=== PATIENT | female | born 1950 | race Caucasian/White ===

== ENCOUNTER 2018-11-04 14:47 | Inpatient (IN) ==
[2018-11-04] MEDS ORDERED: ONDANSETRON 4 MG/2 ML VIAL IV STA (15:05)
[2018-11-04] MEDS ORDERED: LEVOFLOXACIN INJ 750 MG in PREMIX 1 EACH IV STA (15:05)
[2018-11-04] MEDS ORDERED: PANTOPRAZOLE 40 MG VIAL IV STA (15:05)
[2018-11-04] MEDS ORDERED: CLINDAMYCIN INJ 900 MG in PREMIX 1 EACH IV STA (15:05)
[2018-11-04] MEDS ORDERED: SODIUM CHLORIDE 0.9% 1,000 ML IV STA (15:05)
[2018-11-04] MEDS ORDERED: ONDANSETRON 4 MG/2 ML VIAL IV PRN (16:34)
[2018-11-04 16:56] LABS: Hematocrit 32.4 VOL% (35.7-47.0); Hemoglobin 10.1 GM/DL (12.0-16.0); Immature Granulocytes % 0.3 %; Immature Granulocytes Absolute 0.01 #; Lymphocytes % 26.1 % (21.3-54.2); Mean Corpuscular HGB Conc 31.2 GM/DL (32-36); Mean Platelet Volume 9.8 FL (9.6-12.0); Monocytes % 3.6 % (1.7-12.7); Platelet Count 376 T/CUMM (130-400); Red Blood Count 3.64 MC/CUMM (3.8-5.5); Red Cell Distribution Width 14.2 % (9.3-17.3); White Blood Count 3.9 T/CUMM (4-12)
[2018-11-04 17:06] LABS: PT Patient Result 10.7 SECS; Partial Thromboplastin Time 22.2 SECS (0-40)
[2018-11-04 17:20] LABS: Band Neutrophils 7 % (0-10); Lymphocytes 25 % (20-55); Segmented Neutrophils 62 % (50-85); Total Cells Counted 100
[2018-11-04 17:21] LABS: Alanine Aminotransferase 9 U/L (13-56); Albumin 2.8 G/DL (3.4-5.0); Alkaline Phosphatase 83 U/L (45-117); Amylase 24 U/L (25-115); Aspartate Amino Transferase 19 U/L (0-37); Blood Urea Nitrogen 15 MG/DL (7-18); Calcium 8.7 MG/DL (8.5-10.1); Elliptocytes Few; Glucose 84 MG/DL (74-106); Hypochromasia Slight; Osmolality,Calculated 276.5 MOS/KG (273-304); Platelet Estimate Adequate; Schistocytes Few; Total Protein 5.6 G/DL (6.4-8.3); Troponin I < 0.015 NG/ML (0.00-0.045)
[2018-11-04] MEDS ORDERED: LIDOCAINE 1% 20 ML VIAL ONE (17:24)
[2018-11-04] MEDS ORDERED: LIDOCAINE 1%/EPI INJ 20 ML VIAL ONE (17:24)
[2018-11-04] MEDS ORDERED: LORazepam 2 MG/1 ML VIAL ONE (17:39)
[2018-11-04] MEDS ORDERED: ALBUMIN 5% 12.5 GM/250 ML VIAL IV ONE ×2 (18:11→20:12)
[2018-11-04] MEDS ORDERED: HEPARIN/NACL 0.9% 2 UNITS/ML 500 ML IV ONE (19:04)
[2018-11-04 19:37] LABS: ABG HCO3 19.5 MMOL/L (20-26); ABG Oxygen Saturation 99.5 % (95-100); ABG PCO2 37.3 MM HG (35-48); ABG PH 7.326 (7.35-7.45); ABG TCO2 18.3 MMOL/L (23-27); Glucose Heart Surgery 107 MG/DL (74-106); Hematocrit Heart Surgery 24.5 PERCENT (37-47); Hemoglobin Heart Surgery 7.8 G/DL (12.0-16.0); Potassium Heart/CVR 3.1 MMOL/L (3.5-5.1)
[2018-11-04] MEDS: LACTATED RINGERS 1,000 ML IV SCH (19:55)
[2018-11-04] MEDS ORDERED: KETAMINE 500 MG/10 ML VIAL ONE (20:09)
[2018-11-04] MEDS ORDERED: CALCIUM CHLORIDE 1,000 MG/10 ML VIAL IV ONE (20:11)
[2018-11-04] MEDS ORDERED: PROPOFOL 200 MG/20 ML VIAL IV ONE (20:11)
[2018-11-04] MEDS ORDERED: fentaNYL 100 MCG/2 ML VIAL ONE (20:12)
[2018-11-04] MEDS ORDERED: PHENYLEPHRINE 1 MG/10 ML SYRINGE IV ONE (20:13)
[2018-11-04] MEDS ORDERED: SODIUM CHLORIDE 0.9% 1,000 ML IV ONE (20:13)
[2018-11-04] MEDS ORDERED: ROCURONIUM 100 MG/10 ML VIAL IV ONE (20:13)
[2018-11-04] MEDS ORDERED: LACTATED RINGERS 3,000 ML IV ONE (20:13)
[2018-11-04] MEDS ORDERED: MIDAZOLAM 2 MG/2 ML VIAL ONE (20:14)
[2018-11-04 20:16] LABS: Apearance,Urine CLEAR (Clear); Bilirubin,Urine Negative (Negative); Blood, Urine Negative (Negative); Glucose,Urine (UA) Negative (Negative); Ketones,Urine Negative (Negative); Mucus,Urine Occasional /LPF (Occasional); Nitrite,Urine Negative (Negative); Protein,Urine Negative; Squamous Epithelial Cell,Urine Occasional /HPF (0-10); Urine Color Yellow (Yellow); Urine Specific Gravity 1.012 (1.001-1.035); Urine Urobilinogen < 2.0 EU/DL (0.2-1.0); WBC,Urine <1 /HPF (0-6)
[2018-11-04] MEDS ORDERED: DEXAMETHASONE 4 MG/1 ML VIAL ONE (20:16)
[2018-11-04] MEDS ORDERED: ONDANSETRON 4 MG/2 ML VIAL ONE (20:16)
[2018-11-04 20:47] LABS: Hematocrit 28.9 VOL% (35.7-47.0); Hemoglobin 8.9 GM/DL (12.0-16.0); Lymphocytes # 0.2 10*3/uL (1.4-4.0); Lymphocytes % 9.4 % (21.3-54.2); Mean Corpuscular HGB Conc 30.8 GM/DL (32-36); Mean Corpuscular Volume 90.3 FL (87-102); Mean Platelet Volume 9.6 FL (9.6-12.0); Monocytes % 6.6 % (1.7-12.7); Platelet Count 251 T/CUMM (130-400); White Blood Count 2.4 T/CUMM (4-12)
[2018-11-04 21:08] LABS: Calcium 8.5 MG/DL (8.5-10.1); Osmolality,Calculated 281.3 MOS/KG (273-304)
[2018-11-04 21:21] LABS: Band Neutrophils 21 % (0-10); Hypochromasia Slight; Lymphocytes 5 % (20-55); Segmented Neutrophils 67 % (50-85); Total Cells Counted 100
[2018-11-04 21:22] LABS: Elliptocytes Few; Platelet Estimate Adequate; Schistocytes Few
[2018-11-04] MEDS ORDERED: MAGNESIUM SULF RIDER 4 GM in PREMIX 1 EACH IV PRN (21:40)
[2018-11-04] MEDS: PROPOFOL 1,000 MG/100 ML BOTTLE IV SCH ×2 (21:49→23:55)
[2018-11-04] MEDS: MORPHINE 4 MG/1 ML VIAL IV PRN ×2 (22:00→23:56)
[2018-11-04] MEDS: LEVOFLOXACIN INJ 750 MG in PREMIX 1 EACH IV SCH (22:08)
[2018-11-04] MEDS: POTASSIUM CHLORIDE RIDER 10 MEQ in PREMIX 1 EACH IV PRN ×2 (22:09→23:06)
[2018-11-04 22:56] LABS: ABG Base Excess -5.6 MMOL/L (-2.5-2.5); ABG HCO3 19.8 MMOL/L (20-26); ABG Oxygen Saturation 98.9 % (95-100); ABG PCO2 39.9 MM HG (35-48); ABG PH 7.313 (7.35-7.45); ABG TCO2 18.8 MMOL/L (23-27)
[2018-11-04] MEDS: CLINDAMYCIN INJ 900 MG in PREMIX 1 EACH IV SCH (23:45)
[2018-11-04] MEDS ORDERED: SEVOFLURANE 1 UNIT/15 MINUTE INH ONE (23:52)
[2018-11-05] MEDS: LACTATED RINGERS 1,000 ML IV SCH ×5 (00:26→21:11)
[2018-11-05] MEDS: POTASSIUM CHLORIDE RIDER 10 MEQ in PREMIX 1 EACH IV PRN ×2 (01:04)
[2018-11-05] MEDS: MORPHINE 4 MG/1 ML VIAL IV PRN ×5 (02:09→20:04)
[2018-11-05 04:21] LABS: ABG Base Excess -4.2 MMOL/L (-2.5-2.5); ABG Oxygen Saturation 99.5 % (95-100); ABG PCO2 37.3 MM HG (35-48); ABG PH 7.356 (7.35-7.45); ABG TCO2 19.4 MMOL/L (23-27)
[2018-11-05 04:47] LABS: Hematocrit 26.6 VOL% (35.7-47.0); Hemoglobin 8.5 GM/DL (12.0-16.0); Red Blood Count 2.98 MC/CUMM (3.8-5.5)
[2018-11-05 04:48] LABS: Immature Granulocytes % 0.2 %; Immature Granulocytes Absolute 0.01 #; Lymphocytes # 0.3 10*3/uL (1.4-4.0); Mean Corpuscular Volume 89.3 FL (87-102); Mean Platelet Volume 10.3 FL (9.6-12.0); Monocytes % 4.7 % (1.7-12.7); Neutrophils % 88.1 % (38.7-73.9); Platelet Count 270 T/CUMM (130-400); Red Cell Distribution Width 14.1 % (9.3-17.3)
[2018-11-05 05:06] LABS: Albumin 2.5 G/DL (3.4-5.0); Bilirubin,Total 0.9 MG/DL (0.2-1.0); Calcium 8.2 MG/DL (8.5-10.1); Osmolality,Calculated 281.4 MOS/KG (273-304); Total Protein 4.7 G/DL (6.4-8.3)
[2018-11-05 05:14] LABS: Band Neutrophils 24 % (0-10); Hypochromasia 1+; Lymphocytes 6 % (20-55); Ovalocytes Slight; Platelet Estimate Adequate; Segmented Neutrophils 68 % (50-85); Total Cells Counted 100
[2018-11-05] MEDS: CLINDAMYCIN INJ 900 MG in PREMIX 1 EACH IV SCH ×2 (07:50→15:30)
[2018-11-05] MEDS: PROPOFOL 1,000 MG/100 ML BOTTLE IV SCH ×2 (13:00→20:38)
[2018-11-05] MEDS: LEVOFLOXACIN INJ 750 MG in PREMIX 1 EACH IV SCH (20:43)
[2018-11-06] MEDS: CLINDAMYCIN INJ 900 MG in PREMIX 1 EACH IV SCH ×3 (00:12→15:40)
[2018-11-06] MEDS: MORPHINE 4 MG/1 ML VIAL IV PRN ×7 (00:13→20:40)
[2018-11-06] MEDS: PROPOFOL 1,000 MG/100 ML BOTTLE IV SCH ×3 (00:13→22:53)
[2018-11-06] MEDS: LACTATED RINGERS 1,000 ML IV SCH ×5 (01:09→17:00)
[2018-11-06 04:39] LABS: ABG Base Excess -0.1 MMOL/L (-2.5-2.5); ABG HCO3 24.4 MMOL/L (20-26); ABG Oxygen Saturation 97.1 % (95-100); ABG PCO2 41.4 MM HG (35-48); ABG PH 7.387 (7.35-7.45); ABG PO2 87.9 MM HG (80-95); ABG TCO2 23.5 MMOL/L (23-27)
[2018-11-06 04:54] LABS: Basophils % 0.1 % (0.0-0.8); Hematocrit 21.3 VOL% (35.7-47.0); Hemoglobin 6.8 GM/DL (12.0-16.0); Lymphocytes # 0.6 10*3/uL (1.4-4.0); Lymphocytes % 6.4 % (21.3-54.2); Mean Corpuscular HGB Conc 31.9 GM/DL (32-36); Mean Corpuscular Volume 87.7 FL (87-102); Mean Platelet Volume 10.4 FL (9.6-12.0); Monocytes % 2.5 % (1.7-12.7); Platelet Count 226 T/CUMM (130-400); Red Blood Count 2.43 MC/CUMM (3.8-5.5); Red Cell Distribution Width 14.2 % (9.3-17.3)
[2018-11-06 05:15] LABS: Hypochromasia 1+; Ovalocytes Slight; Platelet Estimate Adequate
[2018-11-06 05:18] LABS: Osmolality,Calculated 276.5 MOS/KG (273-304)
[2018-11-06] MEDS: POTASSIUM CHLORIDE RIDER 10 MEQ in PREMIX 1 EACH IV PRN ×3 (06:15→08:55)
[2018-11-06] MEDS ORDERED: SODIUM CHLORIDE 0.9% 1,000 ML IV PRN (07:18)
[2018-11-06] MEDS ORDERED: LIDOCAINE 1%/EPI INJ 20 ML VIAL ONE (12:46)
[2018-11-06] MEDS ORDERED: BUPIVACAINE 0.25% /EPI 10 ML VIAL ONE (12:46)
[2018-11-06] MEDS ORDERED: MIDAZOLAM 2 MG/2 ML VIAL ONE (14:22)
[2018-11-06] MEDS ORDERED: SEVOFLURANE 1 UNIT/15 MINUTE INH ONE (14:22)
[2018-11-06] MEDS ORDERED: ROCURONIUM 100 MG/10 ML VIAL IV ONE (14:23)
[2018-11-06] MEDS ORDERED: PHENYLEPHRINE 1 MG/10 ML SYRINGE IV ONE (14:23)
[2018-11-06 19:11] LABS: Hematocrit 28.1 VOL% (35.7-47.0); Hemoglobin 9.2 GM/DL (12.0-16.0)
[2018-11-06] MEDS ORDERED: POTASSIUM CHLORIDE INJ 50 MEQ in SODIUM CHLORIDE 0.9% 500 ML IV ONE (20:00)
[2018-11-06] MEDS: LEVOFLOXACIN INJ 750 MG in PREMIX 1 EACH IV SCH (20:40)
[2018-11-07] MEDS: CLINDAMYCIN INJ 900 MG in PREMIX 1 EACH IV SCH ×3 (00:20→16:08)
[2018-11-07] MEDS: LACTATED RINGERS 1,000 ML IV SCH ×5 (02:27→22:50)
[2018-11-07] MEDS: PROPOFOL 1,000 MG/100 ML BOTTLE IV SCH ×3 (02:28→20:33)
[2018-11-07] MEDS: MORPHINE 4 MG/1 ML VIAL IV PRN ×6 (02:42→20:33)
[2018-11-07 04:04] LABS: ABG Base Excess 0.9 MMOL/L (-2.5-2.5); ABG HCO3 25.4 MMOL/L (20-26); ABG Oxygen Saturation 99.2 % (95-100); ABG PCO2 40.1 MM HG (35-48); ABG PO2 435.4 MM HG (80-95); ABG TCO2 26.7 MMOL/L (23-27)
[2018-11-07 04:11] LABS: Basophils % 0.2 % (0.0-0.8); Eosinophils % 0.3 % (0.00-10.9); Hematocrit 27.9 VOL% (35.7-47.0); Hemoglobin 9.1 GM/DL (12.0-16.0); Immature Granulocytes % 0.5 %; Immature Granulocytes Absolute 0.05 #; Lymphocytes # 0.6 10*3/uL (1.4-4.0); Lymphocytes % 5.8 % (21.3-54.2); Mean Corpuscular HGB Conc 32.6 GM/DL (32-36); Mean Corpuscular Volume 86.6 FL (87-102); Mean Platelet Volume 9.8 FL (9.6-12.0); Neutrophils % 91.2 % (38.7-73.9); Platelet Count 184 T/CUMM (130-400); Red Blood Count 3.22 MC/CUMM (3.8-5.5); White Blood Count 9.6 T/CUMM (4-12)
[2018-11-07 05:52] LABS: Anisocytosis Slight; Lymphocytes 6 % (20-55); Platelet Estimate Adequate; Segmented Neutrophils 91 % (50-85); Total Cells Counted 100
[2018-11-07 07:54] LABS: ABG Base Excess 0.6 MMOL/L (-2.5-2.5); ABG Oxygen Saturation 97.9 % (95-100); ABG PCO2 44.4 MM HG (35-48); ABG PH 7.376 (7.35-7.45); ABG TCO2 23.7 MMOL/L (23-27)
[2018-11-07 08:10] LABS: Calcium 8.1 MG/DL (8.5-10.1); Osmolality,Calculated 269.8 MOS/KG (273-304)
[2018-11-07] MEDS ORDERED: GLUCAGON 1 MG VIAL IM PRN (08:33)
[2018-11-07] MEDS: MULTIVITAMIN LIQUID (CENTRUM) 60 ML BOTTLE PER TUBE SCH (09:05)
[2018-11-07] MEDS: MAGNESIUM SULF RIDER 2 GM in PREMIX 1 EACH IV PRN (10:39)
[2018-11-07] MEDS: POTASSIUM CHLORIDE RIDER 10 MEQ in PREMIX 1 EACH IV PRN ×5 (10:39→18:17)
[2018-11-07] MEDS ORDERED: ROCURONIUM 100 MG/10 ML VIAL IV ONE (12:28)
[2018-11-07] MEDS ORDERED: MIDAZOLAM 10 MG/2 ML VIAL ONE (12:28)
[2018-11-07] MEDS ORDERED: PHENYLEPHRINE 1 MG/10 ML SYRINGE IV ONE (12:28)
[2018-11-07] MEDS: DEXTROSE 50% 25 GM/50 ML SYRINGE IV PRN (12:45)
[2018-11-07] MEDS: INSULIN REGULAR 100 UNIT/ML SUBCUT SCH ×2 (12:51→18:08)
[2018-11-07] MEDS: LEVOFLOXACIN INJ 750 MG in PREMIX 1 EACH IV SCH (20:33)
[2018-11-08] MEDS: INSULIN REGULAR 100 UNIT/ML SUBCUT SCH ×4 (00:36→18:20)
[2018-11-08] MEDS: LACTATED RINGERS 1,000 ML IV SCH ×2 (01:01→07:11)
[2018-11-08] MEDS: CLINDAMYCIN INJ 900 MG in PREMIX 1 EACH IV SCH ×3 (01:01→15:10)
[2018-11-08] MEDS: MORPHINE 4 MG/1 ML VIAL IV PRN ×3 (01:02→07:22)
[2018-11-08 03:56] LABS: ABG Base Excess 3.2 MMOL/L (-2.5-2.5); ABG HCO3 27.3 MMOL/L (20-26); ABG Oxygen Saturation 98.6 % (95-100); ABG PCO2 44.2 MM HG (35-48); ABG PH 7.412 (7.35-7.45); ABG TCO2 25.7 MMOL/L (23-27)
[2018-11-08 03:59] LABS: Basophils % 0.3 % (0.0-0.8); Eosinophils % 0.4 % (0.00-10.9); Hemoglobin 9.3 GM/DL (12.0-16.0); Immature Granulocytes % 0.6 %; Immature Granulocytes Absolute 0.06 #; Lymphocytes # 0.5 10*3/uL (1.4-4.0); Lymphocytes % 4.8 % (21.3-54.2); Mean Corpuscular HGB Conc 32.1 GM/DL (32-36); Mean Corpuscular Volume 87.1 FL (87-102); Mean Platelet Volume 9.7 FL (9.6-12.0); Monocytes % 3.3 % (1.7-12.7); Neutrophils % 90.6 % (38.7-73.9); Platelet Count 217 T/CUMM (130-400); Red Blood Count 3.33 MC/CUMM (3.8-5.5); Red Cell Distribution Width 13.9 % (9.3-17.3); White Blood Count 10.1 T/CUMM (4-12)
[2018-11-08 04:13] LABS: Calcium 7.5 MG/DL (8.5-10.1); Osmolality,Calculated 267.1 MOS/KG (273-304)
[2018-11-08] MEDS ORDERED: POTASSIUM CHLORIDE INJ 40 MEQ in SODIUM CHLORIDE 0.9% 380 ML IV PRN (05:00)
[2018-11-08] MEDS: MAGNESIUM SULF RIDER 2 GM in PREMIX 1 EACH IV PRN (05:06)
[2018-11-08 05:16] LABS: Anisocytosis 1+; Hypochromasia Slight; Lymphocytes 5 % (20-55); Platelet Estimate Adequate; Segmented Neutrophils 93 % (50-85); Smudge Cells Few; Total Cells Counted 100
[2018-11-08 05:17] LABS: Acanthocytes Few; Burr Cells Few; Ovalocytes Few
[2018-11-08] MEDS: ENOXAPARIN 40 MG/0.4 ML SYRINGE SUBCUT SCH (07:22)
[2018-11-08] MEDS: HYDROmorphone 2 MG/1 ML VIAL IV PRN ×5 (08:13→23:50)
[2018-11-08] MEDS: MULTIVITAMIN LIQUID (CENTRUM) 60 ML BOTTLE PER TUBE SCH (09:15)
[2018-11-08] MEDS: MEROPENEM 500 MG in SODIUM CHLORIDE 0.9% 100 ML IV SCH ×2 (10:56→16:30)
[2018-11-08] MEDS: DEXT 5% NACL 0.45% KCL 20 MEQ 20 MEQ/1,000 ML BAG IV SCH (11:50)
[2018-11-08] MEDS ORDERED: ZINC OXIDE PASTE 113 GM TUBE TOP PRN (12:56)
[2018-11-08] MEDS ORDERED: PANTOPRAZOLE 40 MG TABLET PO SCH ×2 (13:47→21:00)
[2018-11-08] MEDS: PROPOFOL 1,000 MG/100 ML BOTTLE IV SCH ×2 (14:47→23:11)
[2018-11-08] MEDS: CARBIDOPA/LEVODOPA 25-100 MG TABLET PO SCH ×2 (16:30→21:15)
[2018-11-08] MEDS ORDERED: CYCLOBENZAPRINE 10 MG TABLET PO SCH (21:00)
[2018-11-08] MEDS ORDERED: ZIPRASIDONE 20 MG CAPSULE PO SCH (21:00)
[2018-11-08] MEDS: DONEPEZIL 5 MG TABLET PO SCH (21:15)
[2018-11-08] MEDS: CYCLOBENZAPRINE 10 MG TABLET PO SCH (21:15)
[2018-11-08] MEDS: LEVOFLOXACIN INJ 750 MG in PREMIX 1 EACH IV SCH (21:15)
[2018-11-08] MEDS: ZIPRASIDONE 20 MG CAPSULE PO SCH (21:15)
[2018-11-09] MEDS: CLINDAMYCIN INJ 900 MG in PREMIX 1 EACH IV SCH ×2 (00:45→08:50)
[2018-11-09] MEDS: INSULIN REGULAR 100 UNIT/ML SUBCUT SCH ×4 (01:10→18:00)
[2018-11-09] MEDS: MEROPENEM 500 MG in SODIUM CHLORIDE 0.9% 100 ML IV SCH ×3 (02:32→17:00)
[2018-11-09 03:41] LABS: Basophils % 0.2 % (0.0-0.8); Eosinophils # 0.1 10*3/uL (0.0-0.87); Hematocrit 29.8 VOL% (35.7-47.0); Hemoglobin 9.7 GM/DL (12.0-16.0); Immature Granulocytes % 1.1 %; Immature Granulocytes Absolute 0.14 #; Lymphocytes # 0.6 10*3/uL (1.4-4.0); Lymphocytes % 4.8 % (21.3-54.2); Mean Corpuscular HGB Conc 32.6 GM/DL (32-36); Mean Corpuscular Volume 86.4 FL (87-102); Mean Platelet Volume 10.2 FL (9.6-12.0); Monocytes % 5.9 % (1.7-12.7); Platelet Count 224 T/CUMM (130-400); Red Blood Count 3.45 MC/CUMM (3.8-5.5); Red Cell Distribution Width 13.9 % (9.3-17.3); White Blood Count 12.6 T/CUMM (4-12)
[2018-11-09 03:54] LABS: ABG Base Excess 3.2 MMOL/L (-2.5-2.5); ABG HCO3 27.3 MMOL/L (20-26); ABG Oxygen Saturation 99.2 % (95-100); ABG PCO2 44.7 MM HG (35-48); ABG PH 7.412 (7.35-7.45); ABG TCO2 24.5 MMOL/L (23-27)
[2018-11-09 04:13] LABS: Eosinophils 1 % (0-10); Lymphocytes 7 % (20-55); Segmented Neutrophils 89 % (50-85); Total Cells Counted 100
[2018-11-09 04:14] LABS: Anisocytosis Slight; Burr Cells Few; Microcytosis Slight; Ovalocytes Slight
[2018-11-09 04:15] LABS: Platelet Estimate Normal
[2018-11-09 04:23] LABS: Calcium 7.2 MG/DL (8.5-10.1); Osmolality,Calculated 271.1 MOS/KG (273-304); Prealbumin 5.3 MG/DL (20-40)
[2018-11-09] MEDS ORDERED: POTASSIUM CHLORIDE INJ 40 MEQ in SODIUM CHLORIDE 0.9% 380 ML IV PRN (05:00)
[2018-11-09] MEDS: MAGNESIUM SULF RIDER 2 GM in PREMIX 1 EACH IV PRN (05:21)
[2018-11-09] MEDS: LEVOTHYROXINE 100 MCG TABLET PO SCH (06:06)
[2018-11-09] MEDS: DEXT 5% NACL 0.45% KCL 20 MEQ 20 MEQ/1,000 ML BAG IV SCH (07:55)
[2018-11-09] MEDS ORDERED: FUROSEMIDE 20 MG/2 ML VIAL IV ONE (09:00)
[2018-11-09] MEDS ORDERED: CITALOPRAM 40 MG TABLET PO SCH (09:00)
[2018-11-09] MEDS: ENOXAPARIN 40 MG/0.4 ML SYRINGE SUBCUT SCH (09:15)
[2018-11-09] MEDS: CYCLOBENZAPRINE 10 MG TABLET PO SCH ×2 (09:20→21:18)
[2018-11-09] MEDS: ZIPRASIDONE 20 MG CAPSULE PO SCH ×2 (09:20→21:18)
[2018-11-09] MEDS: POTASSIUM CHLORIDE 20 MEQ TABLET PO SCH (09:20)
[2018-11-09] MEDS: MULTIVITAMIN LIQUID (CENTRUM) 60 ML BOTTLE PER TUBE SCH (09:20)
[2018-11-09] MEDS: CARBIDOPA/LEVODOPA 25-100 MG TABLET PO SCH ×4 (09:20→21:18)
[2018-11-09] MEDS: LANSOPRAZOLE ODT 30 MG TABLET PO SCH ×2 (09:20→21:18)
[2018-11-09] MEDS: CLINDAMYCIN INJ 600 MG in PREMIX 1 EACH IV SCH ×2 (09:30→18:15)
[2018-11-09] MEDS: LEVOFLOXACIN 750 MG TABLET PO SCH (12:50)
[2018-11-09] MEDS: CITALOPRAM 40 MG TABLET PO SCH (12:50)
[2018-11-09] MEDS: PROPOFOL 1,000 MG/100 ML BOTTLE IV SCH ×3 (13:10→21:17)
[2018-11-09] MEDS ORDERED: metroNIDAZOLE 500 MG TABLET PO SCH (15:00)
[2018-11-09] MEDS: HYDROmorphone 2 MG/1 ML VIAL IV PRN (15:30)
[2018-11-09] MEDS: POTASSIUM CHLORIDE RIDER 10 MEQ in PREMIX 1 EACH IV PRN ×3 (16:35→18:45)
[2018-11-09] MEDS: DONEPEZIL 5 MG TABLET PO SCH (21:18)
[2018-11-10] MEDS: INSULIN REGULAR 100 UNIT/ML SUBCUT SCH ×5 (00:49→23:35)
[2018-11-10] MEDS: CLINDAMYCIN INJ 600 MG in PREMIX 1 EACH IV SCH ×3 (00:50→16:40)
[2018-11-10] MEDS: MEROPENEM 500 MG in SODIUM CHLORIDE 0.9% 100 ML IV SCH ×3 (01:15→16:40)
[2018-11-10] MEDS: PROPOFOL 1,000 MG/100 ML BOTTLE IV SCH ×4 (04:30→21:40)
[2018-11-10 04:43] LABS: ABG Base Excess 3.4 MMOL/L (-2.5-2.5); ABG HCO3 27.5 MMOL/L (20-26); ABG Oxygen Saturation 99.4 % (95-100); ABG PCO2 42.1 MM HG (35-48); ABG PH 7.431 (7.35-7.45); ABG TCO2 25.2 MMOL/L (23-27)
[2018-11-10 04:47] LABS: Basophils % 0.2 % (0.0-0.8); Eosinophils # 0.2 10*3/uL (0.0-0.87); Eosinophils % 1.4 % (0.00-10.9); Hematocrit 31.5 VOL% (35.7-47.0); Hemoglobin 10.6 GM/DL (12.0-16.0); Immature Granulocytes % 2.1 %; Immature Granulocytes Absolute 0.24 #; Lymphocytes % 8.4 % (21.3-54.2); Mean Corpuscular HGB Conc 33.7 GM/DL (32-36); Mean Corpuscular Volume 85.1 FL (87-102); Mean Platelet Volume 9.9 FL (9.6-12.0); Monocytes % 8.5 % (1.7-12.7); Neutrophils % 79.4 % (38.7-73.9); Platelet Count 252 T/CUMM (130-400); Red Cell Distribution Width 13.8 % (9.3-17.3); White Blood Count 11.4 T/CUMM (4-12)
[2018-11-10 05:05] LABS: Calcium 7.4 MG/DL (8.5-10.1); Osmolality,Calculated 274.8 MOS/KG (273-304)
[2018-11-10] MEDS: ENOXAPARIN 40 MG/0.4 ML SYRINGE SUBCUT SCH (06:25)
[2018-11-10] MEDS: LEVOTHYROXINE 100 MCG TABLET PO SCH (06:25)
[2018-11-10] MEDS: POTASSIUM CHLORIDE 20 MEQ TABLET PO SCH (08:55)
[2018-11-10] MEDS: MULTIVITAMIN LIQUID (CENTRUM) 60 ML BOTTLE PER TUBE SCH (08:55)
[2018-11-10] MEDS: LEVOFLOXACIN 750 MG TABLET PO SCH (08:55)
[2018-11-10] MEDS: ZIPRASIDONE 20 MG CAPSULE PO SCH ×2 (08:55→21:40)
[2018-11-10] MEDS: LANSOPRAZOLE ODT 30 MG TABLET PO SCH ×2 (08:55→21:18)
[2018-11-10] MEDS: CITALOPRAM 40 MG TABLET PO SCH (08:55)
[2018-11-10] MEDS: CARBIDOPA/LEVODOPA 25-100 MG TABLET PO SCH ×4 (08:55→21:18)
[2018-11-10] MEDS: CYCLOBENZAPRINE 10 MG TABLET PO SCH ×2 (08:55→21:18)
[2018-11-10] MEDS: DONEPEZIL 5 MG TABLET PO SCH (21:18)
[2018-11-10] MEDS: HYDROmorphone 2 MG/1 ML VIAL IV PRN (23:35)
[2018-11-11] MEDS: PROPOFOL 1,000 MG/100 ML BOTTLE IV SCH (00:10)
[2018-11-11] MEDS: CLINDAMYCIN INJ 600 MG in PREMIX 1 EACH IV SCH ×2 (01:29→09:40)
[2018-11-11] MEDS ORDERED: HEPARIN/NACL 0.9% 2 UNITS/ML 500 ML IV ONE (02:00)
[2018-11-11] MEDS: MEROPENEM 500 MG in SODIUM CHLORIDE 0.9% 100 ML IV SCH ×3 (02:09→16:30)
[2018-11-11 05:00] LABS: ABG Base Excess 2.2 MMOL/L (-2.5-2.5); ABG HCO3 26.4 MMOL/L (20-26); ABG Oxygen Saturation 99.1 % (95-100); ABG PCO2 37.7 MM HG (35-48); ABG PH 7.449 (7.35-7.45); ABG TCO2 23.4 MMOL/L (23-27); Allen Test Positive; Pt O2 Delivery Device Ventilator
[2018-11-11 05:35] LABS: Basophils % 0.3 % (0.0-0.8); Eosinophils # 0.1 10*3/uL (0.0-0.87); Eosinophils % 1.3 % (0.00-10.9); Hematocrit 33.7 VOL% (35.7-47.0); Hemoglobin 10.9 GM/DL (12.0-16.0); Immature Granulocytes % 3.7 %; Immature Granulocytes Absolute 0.32 #; Lymphocytes # 1.2 10*3/uL (1.4-4.0); Lymphocytes % 13.9 % (21.3-54.2); Mean Corpuscular HGB Conc 32.3 GM/DL (32-36); Mean Corpuscular Volume 87.5 FL (87-102); Mean Platelet Volume 9.8 FL (9.6-12.0); Monocytes % 10.9 % (1.7-12.7); Neutrophils % 69.9 % (38.7-73.9); Platelet Count 302 T/CUMM (130-400); Red Blood Count 3.85 MC/CUMM (3.8-5.5); Red Cell Distribution Width 14.1 % (9.3-17.3); White Blood Count 8.6 T/CUMM (4-12)
[2018-11-11 05:50] LABS: Calcium 7.9 MG/DL (8.5-10.1); Osmolality,Calculated 277.7 MOS/KG (273-304)
[2018-11-11] MEDS: ENOXAPARIN 40 MG/0.4 ML SYRINGE SUBCUT SCH (06:12)
[2018-11-11] MEDS: LEVOTHYROXINE 100 MCG TABLET PO SCH (06:12)
[2018-11-11] MEDS: INSULIN REGULAR 100 UNIT/ML SUBCUT SCH ×3 (06:12→18:36)
[2018-11-11] MEDS: HYDROmorphone 2 MG/1 ML VIAL IV PRN ×5 (07:28→20:36)
[2018-11-11] MEDS: LEVOFLOXACIN 750 MG TABLET PO SCH (08:57)
[2018-11-11] MEDS: ZIPRASIDONE 20 MG CAPSULE PO SCH ×2 (08:57→21:18)
[2018-11-11] MEDS: MULTIVITAMIN LIQUID (CENTRUM) 60 ML BOTTLE PER TUBE SCH (08:57)
[2018-11-11] MEDS: CITALOPRAM 40 MG TABLET PO SCH (08:57)
[2018-11-11] MEDS: LANSOPRAZOLE ODT 30 MG TABLET PO SCH ×2 (08:57→21:18)
[2018-11-11] MEDS: CYCLOBENZAPRINE 10 MG TABLET PO SCH ×2 (08:57→21:18)
[2018-11-11] MEDS: POTASSIUM CHLORIDE 20 MEQ TABLET PO SCH (08:57)
[2018-11-11] MEDS: CARBIDOPA/LEVODOPA 25-100 MG TABLET PO SCH ×4 (08:57→21:19)
[2018-11-11] MEDS: VANCOMYCIN INJ 1,000 MG in SODIUM CHLORIDE 0.9% 250 ML IV SCH ×2 (10:28→22:41)
[2018-11-11] MEDS: LACTATED RINGERS 1,000 ML IV SCH ×2 (14:20→22:39)
[2018-11-11] MEDS ORDERED: LORazepam 2 MG/1 ML VIAL ONE (17:49)
[2018-11-11] MEDS: LORazepam 2 MG/1 ML VIAL IV PRN (17:52)
[2018-11-11] MEDS: DEXTROSE 50% 25 GM/50 ML SYRINGE IV PRN (18:32)
[2018-11-11] MEDS: DONEPEZIL 5 MG TABLET PO SCH (21:18)
[2018-11-12] MEDS: DEXTROSE 50% 25 GM/50 ML SYRINGE IV PRN (00:01)
[2018-11-12] MEDS: INSULIN REGULAR 100 UNIT/ML SUBCUT SCH ×5 (00:21→23:59)
[2018-11-12] MEDS: MEROPENEM 500 MG in SODIUM CHLORIDE 0.9% 100 ML IV SCH ×3 (01:01→16:30)
[2018-11-12] MEDS: LORazepam 2 MG/1 ML VIAL IV PRN ×2 (01:01→08:30)
[2018-11-12 04:56] LABS: Prealbumin 10.4 MG/DL (20-40)
[2018-11-12] MEDS: ENOXAPARIN 40 MG/0.4 ML SYRINGE SUBCUT SCH (06:23)
[2018-11-12] MEDS: LEVOTHYROXINE 100 MCG TABLET PO SCH (06:23)
[2018-11-12] MEDS: LACTATED RINGERS 1,000 ML IV SCH ×4 (06:49→23:21)
[2018-11-12] MEDS: HYDROmorphone 2 MG/1 ML VIAL IV PRN ×5 (07:20→20:50)
[2018-11-12] MEDS: LEVALBUTEROL 1.25 MG/3 ML NEB RESP TX SCH ×3 (07:30→23:34)
[2018-11-12 07:32] LABS: Basophils # 0.1 10*3/uL (0.0-0.2); Basophils % 0.4 % (0.0-0.8); Eosinophils # 0.2 10*3/uL (0.0-0.87); Eosinophils % 1.7 % (0.00-10.9); Hematocrit 32.7 VOL% (35.7-47.0); Hemoglobin 10.2 GM/DL (12.0-16.0); Immature Granulocytes % 2.6 %; Lymphocytes # 1.5 10*3/uL (1.4-4.0); Mean Corpuscular HGB Conc 31.2 GM/DL (32-36); Mean Corpuscular Volume 89.3 FL (87-102); Mean Platelet Volume 9.8 FL (9.6-12.0); Monocytes % 10.1 % (1.7-12.7); Neutrophils % 72.2 % (38.7-73.9); Platelet Count 334 T/CUMM (130-400); Red Blood Count 3.66 MC/CUMM (3.8-5.5); Red Cell Distribution Width 13.9 % (9.3-17.3); White Blood Count 11.4 T/CUMM (4-12)
[2018-11-12 07:58] LABS: Albumin 1.6 G/DL (3.4-5.0); Bilirubin,Total 0.7 MG/DL (0.2-1.0); Osmolality,Calculated 277.4 MOS/KG (273-304); Total Protein 4.4 G/DL (6.4-8.3)
[2018-11-12] MEDS: MENTHOL/ZINC OXIDE OINT 71 GM JAR TOP SCH (09:38)
[2018-11-12] MEDS: MULTIVITAMIN LIQUID (CENTRUM) 60 ML BOTTLE PER TUBE SCH (09:38)
[2018-11-12] MEDS: CITALOPRAM 40 MG TABLET PO SCH (09:39)
[2018-11-12] MEDS: LEVOFLOXACIN 750 MG TABLET PO SCH (09:39)
[2018-11-12] MEDS: POTASSIUM CHLORIDE 20 MEQ TABLET PO SCH (09:39)
[2018-11-12] MEDS: CYCLOBENZAPRINE 10 MG TABLET PO SCH ×2 (09:39→21:12)
[2018-11-12] MEDS: ZIPRASIDONE 20 MG CAPSULE PO SCH ×2 (09:39→21:12)
[2018-11-12] MEDS: CARBIDOPA/LEVODOPA 25-100 MG TABLET PO SCH ×4 (09:39→21:14)
[2018-11-12] MEDS: LANSOPRAZOLE ODT 30 MG TABLET PO SCH ×2 (09:40→21:13)
[2018-11-12] MEDS: VANCOMYCIN INJ 1,000 MG in SODIUM CHLORIDE 0.9% 250 ML IV SCH ×2 (10:24→22:00)
[2018-11-12] MEDS: LORazepam 0.5 MG TABLET PO PRN ×2 (16:14→22:42)
[2018-11-12] MEDS: DONEPEZIL 5 MG TABLET PO SCH (21:12)
[2018-11-12] MEDS: VALBENAZINE 80 MG PO SCH (21:13)
[2018-11-13] MEDS: MEROPENEM 500 MG in SODIUM CHLORIDE 0.9% 100 ML IV SCH ×3 (00:56→17:22)
[2018-11-13] MEDS: HYDROmorphone 2 MG/1 ML VIAL IV PRN ×6 (01:02→22:24)
[2018-11-13 05:02] LABS: Basophils % 0.2 % (0.0-0.8); Eosinophils # 0.2 10*3/uL (0.0-0.87); Eosinophils % 1.6 % (0.00-10.9); Hematocrit 28.2 VOL% (35.7-47.0); Immature Granulocytes % 1.4 %; Lymphocytes # 1.9 10*3/uL (1.4-4.0); Lymphocytes % 13.1 % (21.3-54.2); Mean Corpuscular HGB Conc 31.9 GM/DL (32-36); Mean Corpuscular Volume 88.7 FL (87-102); Mean Platelet Volume 9.6 FL (9.6-12.0); Monocytes % 10.8 % (1.7-12.7); Neutrophils % 72.9 % (38.7-73.9); Platelet Count 321 T/CUMM (130-400); Red Blood Count 3.18 MC/CUMM (3.8-5.5); Red Cell Distribution Width 13.6 % (9.3-17.3); White Blood Count 14.7 T/CUMM (4-12)
[2018-11-13 05:19] LABS: Calcium 7.7 MG/DL (8.5-10.1); Osmolality,Calculated 275.5 MOS/KG (273-304)
[2018-11-13] MEDS: INSULIN REGULAR 100 UNIT/ML SUBCUT SCH ×3 (05:39→17:57)
[2018-11-13] MEDS: LEVOTHYROXINE 100 MCG TABLET PO SCH (06:11)
[2018-11-13] MEDS: ENOXAPARIN 40 MG/0.4 ML SYRINGE SUBCUT SCH (06:11)
[2018-11-13] MEDS: LACTATED RINGERS 1,000 ML IV SCH ×2 (07:30→16:48)
[2018-11-13] MEDS: LEVALBUTEROL 1.25 MG/3 ML NEB RESP TX SCH ×3 (07:41→22:40)
[2018-11-13] MEDS: CYCLOBENZAPRINE 10 MG TABLET PO SCH ×2 (09:16→21:48)
[2018-11-13] MEDS: ZIPRASIDONE 20 MG CAPSULE PO SCH ×2 (09:16→21:48)
[2018-11-13] MEDS: LEVOFLOXACIN 750 MG TABLET PO SCH (09:16)
[2018-11-13] MEDS: CITALOPRAM 40 MG TABLET PO SCH (09:16)
[2018-11-13] MEDS: CARBIDOPA/LEVODOPA 25-100 MG TABLET PO SCH ×4 (09:16→21:48)
[2018-11-13] MEDS: POTASSIUM CHLORIDE 20 MEQ TABLET PO SCH (09:17)
[2018-11-13] MEDS: LANSOPRAZOLE ODT 30 MG TABLET PO SCH ×2 (09:17→21:48)
[2018-11-13] MEDS: VALBENAZINE 80 MG PO SCH (09:17)
[2018-11-13] MEDS: MENTHOL/ZINC OXIDE OINT 71 GM JAR TOP SCH (10:55)
[2018-11-13] MEDS: VANCOMYCIN INJ 1,000 MG in SODIUM CHLORIDE 0.9% 250 ML IV SCH ×2 (11:05→22:02)
[2018-11-13] MEDS: MULTIVITAMIN LIQUID (CENTRUM) 60 ML BOTTLE PER TUBE SCH (12:48)
[2018-11-13] MEDS: LORazepam 2 MG/1 ML VIAL IV PRN (17:58)
[2018-11-13] MEDS: DONEPEZIL 5 MG TABLET PO SCH (21:48)
[2018-11-14] MEDS: LACTATED RINGERS 1,000 ML IV SCH ×3 (00:12→21:53)
[2018-11-14] MEDS: INSULIN REGULAR 100 UNIT/ML SUBCUT SCH ×4 (00:45→17:44)
[2018-11-14] MEDS: LORazepam 2 MG/1 ML VIAL IV PRN ×2 (02:55→10:01)
[2018-11-14] MEDS: MEROPENEM 500 MG in SODIUM CHLORIDE 0.9% 100 ML IV SCH ×3 (03:09→17:11)
[2018-11-14 03:52] LABS: Basophils % 0.2 % (0.0-0.8); Eosinophils # 0.2 10*3/uL (0.0-0.87); Eosinophils % 1.6 % (0.00-10.9); Hematocrit 27.1 VOL% (35.7-47.0); Hemoglobin 8.5 GM/DL (12.0-16.0); Immature Granulocytes % 1.4 %; Immature Granulocytes Absolute 0.17 #; Lymphocytes # 1.8 10*3/uL (1.4-4.0); Lymphocytes % 14.2 % (21.3-54.2); Mean Corpuscular HGB Conc 31.4 GM/DL (32-36); Mean Corpuscular Volume 88.9 FL (87-102); Mean Platelet Volume 9.4 FL (9.6-12.0); Monocytes % 10.2 % (1.7-12.7); Neutrophils % 72.4 % (38.7-73.9); Platelet Count 334 T/CUMM (130-400); Red Blood Count 3.05 MC/CUMM (3.8-5.5); Red Cell Distribution Width 13.6 % (9.3-17.3); White Blood Count 12.5 T/CUMM (4-12)
[2018-11-14 04:16] LABS: Calcium 7.7 MG/DL (8.5-10.1); Osmolality,Calculated 273.7 MOS/KG (273-304)
[2018-11-14] MEDS: HYDROmorphone 2 MG/1 ML VIAL IV PRN ×2 (05:39→13:10)
[2018-11-14] MEDS: LEVOTHYROXINE 100 MCG TABLET PO SCH (06:32)
[2018-11-14] MEDS: ENOXAPARIN 40 MG/0.4 ML SYRINGE SUBCUT SCH (06:32)
[2018-11-14] MEDS: LEVALBUTEROL 1.25 MG/3 ML NEB RESP TX SCH ×3 (07:55→23:38)
[2018-11-14] MEDS: ZIPRASIDONE 20 MG CAPSULE PO SCH ×2 (10:00→21:07)
[2018-11-14] MEDS: CYCLOBENZAPRINE 10 MG TABLET PO SCH ×2 (10:00→21:06)
[2018-11-14] MEDS: CITALOPRAM 40 MG TABLET PO SCH (10:00)
[2018-11-14] MEDS: LEVOFLOXACIN 750 MG TABLET PO SCH (10:00)
[2018-11-14] MEDS: CARBIDOPA/LEVODOPA 25-100 MG TABLET PO SCH ×4 (10:00→21:07)
[2018-11-14] MEDS: LANSOPRAZOLE ODT 30 MG TABLET PO SCH ×2 (10:01→21:06)
[2018-11-14] MEDS: VALBENAZINE 80 MG PO SCH (10:01)
[2018-11-14] MEDS: MULTIVITAMIN LIQUID (CENTRUM) 60 ML BOTTLE PER TUBE SCH (10:01)
[2018-11-14] MEDS: POTASSIUM CHLORIDE 20 MEQ TABLET PO SCH (10:01)
[2018-11-14] MEDS: VANCOMYCIN INJ 1,000 MG in SODIUM CHLORIDE 0.9% 250 ML IV SCH ×2 (11:20→21:52)
[2018-11-14] MEDS: MENTHOL/ZINC OXIDE OINT 71 GM JAR TOP SCH (16:30)
[2018-11-14] MEDS: DONEPEZIL 5 MG TABLET PO SCH (21:07)
[2018-11-15] MEDS: INSULIN REGULAR 100 UNIT/ML SUBCUT SCH ×4 (00:07→18:05)
[2018-11-15] MEDS: MEROPENEM 500 MG in SODIUM CHLORIDE 0.9% 100 ML IV SCH ×3 (01:46→16:31)
[2018-11-15] MEDS: HYDROmorphone 2 MG/1 ML VIAL IV PRN ×5 (01:46→20:15)
[2018-11-15 05:07] LABS: Basophils % 0.2 % (0.0-0.8); Eosinophils # 0.2 10*3/uL (0.0-0.87); Eosinophils % 1.4 % (0.00-10.9); Hematocrit 28.4 VOL% (35.7-47.0); Immature Granulocytes % 1.1 %; Immature Granulocytes Absolute 0.16 #; Lymphocytes # 1.9 10*3/uL (1.4-4.0); Lymphocytes % 12.9 % (21.3-54.2); Mean Corpuscular HGB Conc 31.7 GM/DL (32-36); Mean Corpuscular Volume 88.8 FL (87-102); Mean Platelet Volume 9.5 FL (9.6-12.0); Monocytes % 8.8 % (1.7-12.7); Neutrophils % 75.6 % (38.7-73.9); Platelet Count 444 T/CUMM (130-400); Red Cell Distribution Width 13.5 % (9.3-17.3); White Blood Count 14.7 T/CUMM (4-12)
[2018-11-15 05:46] LABS: Alanine Aminotransferase < 9 U/L (13-56); Albumin 1.4 G/DL (3.4-5.0); Alkaline Phosphatase 70 U/L (45-117); Aspartate Amino Transferase 17 U/L (0-37); Blood Urea Nitrogen 11 MG/DL (7-18); Calcium 7.7 MG/DL (8.5-10.1); Glucose 100 MG/DL (74-106); Osmolality,Calculated 275.5 MOS/KG (273-304); Total Protein 3.9 G/DL (6.4-8.3)
[2018-11-15] MEDS: LEVOTHYROXINE 100 MCG TABLET PO SCH (06:28)
[2018-11-15] MEDS: ENOXAPARIN 40 MG/0.4 ML SYRINGE SUBCUT SCH (06:28)
[2018-11-15] MEDS: LEVALBUTEROL 1.25 MG/3 ML NEB RESP TX SCH ×3 (08:02→23:01)
[2018-11-15] MEDS: LANSOPRAZOLE ODT 30 MG TABLET PO SCH ×2 (08:21→21:37)
[2018-11-15] MEDS: POTASSIUM CHLORIDE 20 MEQ TABLET PO SCH (08:21)
[2018-11-15] MEDS: CYCLOBENZAPRINE 10 MG TABLET PO SCH ×2 (08:22→21:36)
[2018-11-15] MEDS: MULTIVITAMIN LIQUID (CENTRUM) 60 ML BOTTLE PER TUBE SCH (08:22)
[2018-11-15] MEDS: CITALOPRAM 40 MG TABLET PO SCH (08:22)
[2018-11-15] MEDS: CARBIDOPA/LEVODOPA 25-100 MG TABLET PO SCH ×4 (08:22→21:37)
[2018-11-15] MEDS: ZIPRASIDONE 20 MG CAPSULE PO SCH ×2 (08:22→21:37)
[2018-11-15] MEDS: VALBENAZINE 80 MG PO SCH (08:23)
[2018-11-15] MEDS: LEVOFLOXACIN 750 MG TABLET PO SCH (08:30)
[2018-11-15] MEDS: VANCOMYCIN INJ 1,000 MG in SODIUM CHLORIDE 0.9% 250 ML IV SCH ×2 (10:43→22:15)
[2018-11-15] MEDS: LACTATED RINGERS 1,000 ML IV SCH ×2 (11:08→22:59)
[2018-11-15] MEDS: LORazepam 0.5 MG TABLET PO PRN (13:40)
[2018-11-15] MEDS: MENTHOL/ZINC OXIDE OINT 71 GM JAR TOP SCH (17:00)
[2018-11-15] MEDS: DONEPEZIL 5 MG TABLET PO SCH (21:36)
[2018-11-15] MEDS: LORazepam 2 MG/1 ML VIAL IV PRN (21:59)
[2018-11-16] MEDS: INSULIN REGULAR 100 UNIT/ML SUBCUT SCH ×5 (00:11→23:12)
[2018-11-16] MEDS: LACTATED RINGERS 1,000 ML IV SCH (00:11)
[2018-11-16] MEDS: MEROPENEM 500 MG in SODIUM CHLORIDE 0.9% 100 ML IV SCH ×3 (01:42→17:42)
[2018-11-16 04:21] LABS: Basophils % 0.3 % (0.0-0.8); Eosinophils # 0.2 10*3/uL (0.0-0.87); Eosinophils % 1.6 % (0.00-10.9); Hematocrit 27.8 VOL% (35.7-47.0); Immature Granulocytes % 0.7 %; Immature Granulocytes Absolute 0.11 #; Lymphocytes # 1.6 10*3/uL (1.4-4.0); Lymphocytes % 11.1 % (21.3-54.2); Mean Corpuscular HGB Conc 32.4 GM/DL (32-36); Mean Platelet Volume 9.4 FL (9.6-12.0); Neutrophils % 77.3 % (38.7-73.9); Platelet Count 514 T/CUMM (130-400); Red Blood Count 3.16 MC/CUMM (3.8-5.5); Red Cell Distribution Width 13.3 % (9.3-17.3); White Blood Count 14.7 T/CUMM (4-12)
[2018-11-16 04:43] LABS: Alanine Aminotransferase < 6 U/L (13-56); Albumin 1.4 G/DL (3.4-5.0); Alkaline Phosphatase 66 U/L (45-117); Aspartate Amino Transferase 16 U/L (0-37); Blood Urea Nitrogen 11 MG/DL (7-18); Calcium 7.7 MG/DL (8.5-10.1); Glucose 96 MG/DL (74-106); Osmolality,Calculated 271.8 MOS/KG (273-304); Total Protein 3.9 G/DL (6.4-8.3)
[2018-11-16 04:46] LABS: Prealbumin 12.6 MG/DL (20-40)
[2018-11-16] MEDS: HYDROmorphone 2 MG/1 ML VIAL IV PRN ×5 (04:52→21:58)
[2018-11-16] MEDS: LEVOTHYROXINE 100 MCG TABLET PO SCH (06:20)
[2018-11-16] MEDS: ENOXAPARIN 40 MG/0.4 ML SYRINGE SUBCUT SCH (06:20)
[2018-11-16] MEDS: LEVALBUTEROL 1.25 MG/3 ML NEB RESP TX SCH ×2 (07:15→15:00)
[2018-11-16] MEDS ORDERED: FUROSEMIDE 20 MG/2 ML VIAL IV ONE (08:46)
[2018-11-16] MEDS: CITALOPRAM 40 MG TABLET PO SCH (09:05)
[2018-11-16] MEDS: POTASSIUM CHLORIDE 20 MEQ TABLET PO SCH (09:05)
[2018-11-16] MEDS: ZIPRASIDONE 20 MG CAPSULE PO SCH ×2 (09:05→21:38)
[2018-11-16] MEDS: LANSOPRAZOLE ODT 30 MG TABLET PO SCH ×2 (09:05→21:38)
[2018-11-16] MEDS: CARBIDOPA/LEVODOPA 25-100 MG TABLET PO SCH ×4 (09:06→21:39)
[2018-11-16] MEDS: CYCLOBENZAPRINE 10 MG TABLET PO SCH ×2 (09:06→21:38)
[2018-11-16] MEDS: LEVOFLOXACIN 750 MG TABLET PO SCH (09:06)
[2018-11-16] MEDS: VALBENAZINE 80 MG PO SCH (09:07)
[2018-11-16] MEDS: MULTIVITAMIN LIQUID (CENTRUM) 60 ML BOTTLE PER TUBE SCH (09:14)
[2018-11-16] MEDS: MENTHOL/ZINC OXIDE OINT 71 GM JAR TOP SCH (09:25)
[2018-11-16] MEDS: VANCOMYCIN INJ 1,000 MG in SODIUM CHLORIDE 0.9% 250 ML IV SCH ×2 (10:02→21:36)
[2018-11-16] MEDS ORDERED: POTASSIUM PHOS/SOD PHOS POWDER 250 MG PACK PER TUBE ONE (10:30)
[2018-11-16] MEDS ORDERED: LORazepam 2 MG/1 ML VIAL ONE (15:32)
[2018-11-16] MEDS: LORazepam 2 MG/1 ML VIAL IV PRN (15:37)
[2018-11-16] MEDS: ACETAMINOPHEN 325 MG TABLET PO PRN (17:35)
[2018-11-16] MEDS: LORazepam 0.5 MG TABLET PO PRN (18:00)
[2018-11-16] MEDS: DONEPEZIL 5 MG TABLET PO SCH (21:39)
[2018-11-17] MEDS: MEROPENEM 500 MG in SODIUM CHLORIDE 0.9% 100 ML IV SCH ×3 (01:42→18:30)
[2018-11-17] MEDS: LEVALBUTEROL 1.25 MG/3 ML NEB RESP TX SCH ×4 (01:58→23:07)
[2018-11-17 04:41] LABS: Basophils % 0.3 % (0.0-0.8); Eosinophils # 0.2 10*3/uL (0.0-0.87); Eosinophils % 1.6 % (0.00-10.9); Hematocrit 25.5 VOL% (35.7-47.0); Hemoglobin 8.1 GM/DL (12.0-16.0); Immature Granulocytes % 0.6 %; Immature Granulocytes Absolute 0.07 #; Lymphocytes # 1.6 10*3/uL (1.4-4.0); Lymphocytes % 13.8 % (21.3-54.2); Mean Corpuscular HGB Conc 31.8 GM/DL (32-36); Mean Corpuscular Volume 88.2 FL (87-102); Mean Platelet Volume 9.4 FL (9.6-12.0); Monocytes % 11.5 % (1.7-12.7); Neutrophils % 72.2 % (38.7-73.9); Platelet Count 531 T/CUMM (130-400); Red Blood Count 2.89 MC/CUMM (3.8-5.5); Red Cell Distribution Width 13.4 % (9.3-17.3); White Blood Count 11.6 T/CUMM (4-12)
[2018-11-17 04:46] LABS: Calcium 7.8 MG/DL (8.5-10.1)
[2018-11-17 04:47] LABS: Osmolality,Calculated 271.8 MOS/KG (273-304)
[2018-11-17] MEDS: ENOXAPARIN 40 MG/0.4 ML SYRINGE SUBCUT SCH (06:31)
[2018-11-17] MEDS: LEVOTHYROXINE 100 MCG TABLET PO SCH (06:31)
[2018-11-17] MEDS: INSULIN REGULAR 100 UNIT/ML SUBCUT SCH ×3 (06:31→18:20)
[2018-11-17] MEDS: LEVOFLOXACIN 750 MG TABLET PO SCH (09:55)
[2018-11-17] MEDS: POTASSIUM CHLORIDE 20 MEQ TABLET PO SCH (09:55)
[2018-11-17] MEDS: LANSOPRAZOLE ODT 30 MG TABLET PO SCH ×2 (09:55→20:57)
[2018-11-17] MEDS: VALBENAZINE 80 MG PO SCH (09:55)
[2018-11-17] MEDS: CARBIDOPA/LEVODOPA 25-100 MG TABLET PO SCH ×4 (09:55→20:56)
[2018-11-17] MEDS: ZIPRASIDONE 20 MG CAPSULE PO SCH ×2 (09:55→20:56)
[2018-11-17] MEDS: CITALOPRAM 40 MG TABLET PO SCH (09:55)
[2018-11-17] MEDS: MULTIVITAMIN LIQUID (CENTRUM) 60 ML BOTTLE PER TUBE SCH (09:56)
[2018-11-17] MEDS: CYCLOBENZAPRINE 10 MG TABLET PO SCH ×2 (09:56→20:57)
[2018-11-17] MEDS: HYDROmorphone 2 MG/1 ML VIAL IV PRN ×3 (10:26→19:05)
[2018-11-17] MEDS: LORazepam 2 MG/1 ML VIAL IV PRN ×2 (10:28→21:12)
[2018-11-17] MEDS: VANCOMYCIN INJ 1,000 MG in SODIUM CHLORIDE 0.9% 250 ML IV SCH ×2 (10:30→23:58)
[2018-11-17] MEDS: LORazepam 0.5 MG TABLET PO PRN (14:00)
[2018-11-17] MEDS: MENTHOL/ZINC OXIDE OINT 71 GM JAR TOP SCH (15:30)
[2018-11-17] MEDS: DONEPEZIL 5 MG TABLET PO SCH (20:57)
[2018-11-18] MEDS: INSULIN REGULAR 100 UNIT/ML SUBCUT SCH ×4 (00:25→18:43)
[2018-11-18] MEDS: MEROPENEM 500 MG in SODIUM CHLORIDE 0.9% 100 ML IV SCH ×3 (02:17→16:58)
[2018-11-18] MEDS: HYDROmorphone 2 MG/1 ML VIAL IV PRN ×5 (02:44→20:11)
[2018-11-18 05:23] LABS: Basophils # 0.1 10*3/uL (0.0-0.2); Basophils % 0.4 % (0.0-0.8); Eosinophils # 0.1 10*3/uL (0.0-0.87); Hematocrit 24.6 VOL% (35.7-47.0); Hemoglobin 7.9 GM/DL (12.0-16.0); Immature Granulocytes % 0.6 %; Immature Granulocytes Absolute 0.08 #; Lymphocytes # 1.1 10*3/uL (1.4-4.0); Lymphocytes % 8.8 % (21.3-54.2); Mean Corpuscular HGB Conc 32.1 GM/DL (32-36); Mean Corpuscular Volume 88.8 FL (87-102); Mean Platelet Volume 9.1 FL (9.6-12.0); Monocytes % 9.5 % (1.7-12.7); Neutrophils % 79.7 % (38.7-73.9); Platelet Count 594 T/CUMM (130-400); Red Blood Count 2.77 MC/CUMM (3.8-5.5); Red Cell Distribution Width 13.3 % (9.3-17.3); White Blood Count 12.7 T/CUMM (4-12)
[2018-11-18 05:50] LABS: Calcium 7.9 MG/DL (8.5-10.1); Osmolality,Calculated 276.5 MOS/KG (273-304)
[2018-11-18] MEDS: ENOXAPARIN 40 MG/0.4 ML SYRINGE SUBCUT SCH (06:09)
[2018-11-18] MEDS: LEVOTHYROXINE 100 MCG TABLET PO SCH (06:09)
[2018-11-18] MEDS: LEVALBUTEROL 1.25 MG/3 ML NEB RESP TX SCH ×2 (07:15→14:20)
[2018-11-18] MEDS: CYCLOBENZAPRINE 10 MG TABLET PO SCH ×2 (10:56→21:02)
[2018-11-18] MEDS: LEVOFLOXACIN 750 MG TABLET PO SCH (10:57)
[2018-11-18] MEDS: CARBIDOPA/LEVODOPA 25-100 MG TABLET PO SCH ×4 (10:57→21:01)
[2018-11-18] MEDS: ZIPRASIDONE 20 MG CAPSULE PO SCH ×2 (10:57→21:02)
[2018-11-18] MEDS: POTASSIUM CHLORIDE 20 MEQ TABLET PO SCH (10:57)
[2018-11-18] MEDS: LANSOPRAZOLE ODT 30 MG TABLET PO SCH ×2 (10:58→21:03)
[2018-11-18] MEDS: CITALOPRAM 40 MG TABLET PO SCH (10:58)
[2018-11-18] MEDS: ACETAMINOPHEN 325 MG TABLET PO PRN (10:58)
[2018-11-18] MEDS: VANCOMYCIN INJ 1,000 MG in SODIUM CHLORIDE 0.9% 250 ML IV SCH (12:46)
[2018-11-18] MEDS: VALBENAZINE 80 MG PO SCH (12:54)
[2018-11-18] MEDS: MULTIVITAMIN LIQUID (CENTRUM) 60 ML BOTTLE PER TUBE SCH (15:53)
[2018-11-18] MEDS: MENTHOL/ZINC OXIDE OINT 71 GM JAR TOP SCH (16:44)
[2018-11-18] MEDS: LORazepam 2 MG/1 ML VIAL IV PRN (20:10)
[2018-11-18] MEDS: DONEPEZIL 5 MG TABLET PO SCH (21:02)
[2018-11-19] MEDS: LEVALBUTEROL 1.25 MG/3 ML NEB RESP TX SCH ×4 (00:21→23:28)
[2018-11-19] MEDS: INSULIN REGULAR 100 UNIT/ML SUBCUT SCH ×4 (00:43→18:17)
[2018-11-19] MEDS: MEROPENEM 500 MG in SODIUM CHLORIDE 0.9% 100 ML IV SCH (01:03)
[2018-11-19] MEDS: HYDROmorphone 2 MG/1 ML VIAL IV PRN ×5 (01:35→16:59)
[2018-11-19 04:59] LABS: Calcium 7.9 MG/DL (8.5-10.1); Osmolality,Calculated 275.5 MOS/KG (273-304)
[2018-11-19 05:10] LABS: Prealbumin 11.9 MG/DL (20-40)
[2018-11-19] MEDS: LEVOTHYROXINE 100 MCG TABLET PO SCH (06:00)
[2018-11-19] MEDS: ENOXAPARIN 40 MG/0.4 ML SYRINGE SUBCUT SCH (06:00)
[2018-11-19 07:25] LABS: Basophils % 0.3 % (0.0-0.8); Eosinophils # 0.2 10*3/uL (0.0-0.87); Eosinophils % 1.5 % (0.00-10.9); Hematocrit 26.6 VOL% (35.7-47.0); Hemoglobin 8.5 GM/DL (12.0-16.0); Immature Granulocytes % 1.4 %; Immature Granulocytes Absolute 0.16 #; Lymphocytes # 1.7 10*3/uL (1.4-4.0); Lymphocytes % 14.5 % (21.3-54.2); Mean Corpuscular Volume 90.5 FL (87-102); Mean Platelet Volume 9.1 FL (9.6-12.0); Neutrophils % 73.3 % (38.7-73.9); Platelet Count 696 T/CUMM (130-400); Red Blood Count 2.94 MC/CUMM (3.8-5.5); Red Cell Distribution Width 13.4 % (9.3-17.3); White Blood Count 11.5 T/CUMM (4-12)
[2018-11-19] MEDS: ZIPRASIDONE 20 MG CAPSULE PO SCH ×2 (09:48→21:12)
[2018-11-19] MEDS: LANSOPRAZOLE ODT 30 MG TABLET PO SCH ×2 (09:49→21:10)
[2018-11-19] MEDS: CYCLOBENZAPRINE 10 MG TABLET PO SCH ×2 (09:49→21:09)
[2018-11-19] MEDS: POTASSIUM CHLORIDE 20 MEQ TABLET PO SCH (09:49)
[2018-11-19] MEDS: CARBIDOPA/LEVODOPA 25-100 MG TABLET PO SCH ×4 (09:49→21:09)
[2018-11-19] MEDS: CITALOPRAM 40 MG TABLET PO SCH (09:50)
[2018-11-19] MEDS: MENTHOL/ZINC OXIDE OINT 71 GM JAR TOP SCH (09:50)
[2018-11-19] MEDS: VANCOMYCIN INJ 1,000 MG in SODIUM CHLORIDE 0.9% 250 ML IV SCH ×2 (10:07→21:08)
[2018-11-19] MEDS: VALBENAZINE 80 MG PO SCH (10:28)
[2018-11-19] MEDS: MULTIVITAMIN LIQUID (CENTRUM) 60 ML BOTTLE PER TUBE SCH (10:28)
[2018-11-19] MEDS: LORazepam 0.5 MG TABLET PO PRN (14:47)
[2018-11-19] MEDS: DONEPEZIL 5 MG TABLET PO SCH (21:09)
[2018-11-20] MEDS: INSULIN REGULAR 100 UNIT/ML SUBCUT SCH ×3 (00:36→11:34)
[2018-11-20 05:42] LABS: Calcium 7.9 MG/DL (8.5-10.1); Osmolality,Calculated 276.5 MOS/KG (273-304)
[2018-11-20] MEDS: LEVOTHYROXINE 100 MCG TABLET PO SCH (06:05)
[2018-11-20] MEDS: ENOXAPARIN 40 MG/0.4 ML SYRINGE SUBCUT SCH (06:06)
[2018-11-20] MEDS: LEVALBUTEROL 1.25 MG/3 ML NEB RESP TX SCH (07:38)
[2018-11-20] MEDS: HYDROmorphone 2 MG/1 ML VIAL IV PRN (10:25)
[2018-11-20] MEDS: ZIPRASIDONE 20 MG CAPSULE PO SCH (10:26)
[2018-11-20] MEDS: POTASSIUM CHLORIDE 20 MEQ TABLET PO SCH (10:26)
[2018-11-20] MEDS: LANSOPRAZOLE ODT 30 MG TABLET PO SCH (10:26)
[2018-11-20] MEDS: VALBENAZINE 80 MG PO SCH (10:27)
[2018-11-20] MEDS: CITALOPRAM 40 MG TABLET PO SCH (10:27)
[2018-11-20] MEDS: CARBIDOPA/LEVODOPA 25-100 MG TABLET PO SCH ×2 (10:27→20:02)
[2018-11-20] MEDS: MULTIVITAMIN LIQUID (CENTRUM) 60 ML BOTTLE PER TUBE SCH (10:27)
[2018-11-20] MEDS: MENTHOL/ZINC OXIDE OINT 71 GM JAR TOP SCH (10:27)
[2018-11-20] MEDS: CYCLOBENZAPRINE 10 MG TABLET PO SCH (10:27)
[2018-11-20] MEDS: VANCOMYCIN INJ 1,000 MG in SODIUM CHLORIDE 0.9% 250 ML IV SCH (10:28)
[2018-11-20 11:31] VITALS: BP 128/78
[2018-11-20] MEDS: LORazepam 2 MG/1 ML VIAL IV PRN (11:56)
== END 2018-11-20 13:20 | DRG 329 ==
LOC: EDBD → EDUNIT# → N.ED 14:47 → N.ICU 17:03 → N.EDINP 17:34 → SUATTDRO 17:34 → N.ICU 18:01 → N.3E 11-18 02:16
PROVIDERS: ADMIT Internal Medicine; ATTEND Surgery